=== PATIENT | male | born 1980 | race Caucasian/White ===

== ENCOUNTER 2023-09-02 11:24 | Emergency (ER) | payer OTHER ==
[~2023-09-02] VITALS: Ht 180.3 cm; Wt 81.8 kg
[2023-09-02 11:49] VITALS: TEMP 97.9
[2023-09-02] MEDS ORDERED: IBUP-1554 PO (12:01)
[2023-09-02] MEDS ORDERED: PARO10TA89 PO (12:04)
[2023-09-02] MEDS ORDERED: LEVE500T19 PO (12:04)
[2023-09-02] MEDS: LIDOCAINE 1% 10 ML VIAL SQ ONE (12:29)
[2023-09-02] MEDS: PERTUSS(ACELL),DIPH,TET/PF 0.5 ML SYRINGE [ADULT] IM. ONE (12:30)
[2023-09-02 14:22] VITALS: BP 115/76; PULSE 80; RESP 16
== END 2023-09-02 14:26 | disposition home or self-care (01) ==
LOC: EMS 11:24
DX: S01.91XA Laceration without foreign body of unspecified part of head, initial encounter (principal); I10 Essential (primary) hypertension; R56.9 Unspecified convulsions; F60.3 Borderline personality disorder; F17.210 Nicotine dependence, cigarettes, uncomplicated; F15.90 Other stimulant use, unspecified, uncomplicated; Z90.49 Acquired absence of other specified parts of digestive tract; Z91.013 Allergy to seafood; Z91.012 Allergy to eggs; X58.XXXA Exposure to other specified factors, initial encounter; Y93.89 Activity, other specified; Y92.89 Other specified places as the place of occurrence of the external cause; Y99.8 Other external cause status
CPT/HCPCS: 99285; 70450; 71045; 90715; 90471; 12001; J3490

== ENCOUNTER 2023-09-02 23:48 | Emergency (ER) | payer OTHER ==
[~2023-09-02] VITALS: Ht 180.3 cm; Wt 90.0 kg
[~2023-09-02 23:48] MED LIST: IBUP-1554 PO; LEVE500T19 PO; PARO10TA89 PO
[2023-09-03 00:05] VITALS: TEMP 97.3
[2023-09-03 01:00] VITALS: BP 134/89; PULSE 100; RESP 16
== END 2023-09-03 03:30 | disposition home or self-care (01) ==
LOC: EMS 23:53
DX: T76.21XA Adult sexual abuse, suspected, initial encounter (principal); I10 Essential (primary) hypertension; R56.9 Unspecified convulsions; F60.3 Borderline personality disorder; F17.210 Nicotine dependence, cigarettes, uncomplicated; F15.90 Other stimulant use, unspecified, uncomplicated; Z90.49 Acquired absence of other specified parts of digestive tract; Z91.013 Allergy to seafood; Z91.012 Allergy to eggs
CPT/HCPCS: 99283; Z7502